=== PATIENT | male | born 1965 | race African-American/Black ===

== ENCOUNTER → 2021-10-25 | Outpatient (CLI) | payer OTHER ==
--- NOTE | 2021-10-25 20:33 | KCIC ---
EXAM: AP, lateral and lumbosacral spot views with bilateral oblique views of the lumbar spine DATE: 10/25/2021 11:38 AM INDICATION: Reason: WEAKNESS AND SHOOTING PAIN DOWN RT LEG 2-3 WEEKS, NKI / Spl. Instructions: / His tory: COMPARISON: No Prior FINDINGS: 5 nonrib-bearing lumbar-type vertebral bodies. Vertebral body heights are preserved. Mild L5-S1 disc height loss. On the oblique views no definite pars defects. Facet degenerative changes L4-5 and L5-S1 . Straightening of the normal lumbar lordosis. No spondylolisthesis. IMPRESSION: 1. Negative acute fracture or subluxation. 2. Degenerative changes as above. Electronically signed by: Ganesh Varma MD (10/25/2021 8:30 PM) ANGI
== END ==
LOC: KCIC 11:35
PROVIDERS: ATTEND Family Medicine
DX: M47.817 Spondylosis without myelopathy or radiculopathy, lumbosacral region (principal); M51.37 Other intervertebral disc degeneration, lumbosacral region; M40.46 Postural lordosis, lumbar region
CPT/HCPCS: 72110

== ENCOUNTER → 2021-11-20 | Outpatient (CLI) | payer OTHER ==
--- NOTE | 2021-11-20 14:50 | RAD ---
EXAM: Pelvis and right hip, 3 views. HISTORY: Falls. COMPARISON: None. FINDINGS: A frontal view of the pelvis and 2 views of the right hip are obtained. There is no fractur e, dislocation or subluxation. There is minimal marginal bilateral femoral head spurring. There is de generative change at the lower lumbar levels. There are incidental vasectomy clips. IMPRESSION: Minimal bilateral hip osteoarthritis. Electronically signed by: Alecia Sharma MD (11/20/2021 2:48 PM) [id number]
== END ==
LOC: RAD 14:18
PROVIDERS: ATTEND Family Medicine
DX: M16.0 Bilateral primary osteoarthritis of hip (principal); M47.816 Spondylosis without myelopathy or radiculopathy, lumbar region; M76.891 Other specified enthesopathies of right lower limb, excluding foot; R29.6 Repeated falls
CPT/HCPCS: 73502